=== PATIENT | male | born 1975 | race Two or more races ===

== ENCOUNTER 2025-02-10 12:38 | Emergency (ER) | payer SELFPAY ==
[2025-02-10 12:53] VITALS: BP 143/92; PULSE 66; RESP 18; TEMP 36.7; O2SAT 98
--- NOTE | 2025-02-10 13:07 | PD.EDADULT ---
ED General RME/HPI General Chief complaint: General Adult/Misc Complain Stated complaint: SWELLING TO LEFT SIDE OF FACE Time Seen by Provider: 02/10/25 12:58 Arrival date/time: 02/10/25 12:38 49-year-old presents to the Emergency Department today complains of 1 day history of left-sided facial swelling patient is concerned that his infection is tooth patient reports no difficulty swallowing or breathing Limitations: no limitations Related Data Previous Rx's ?Medication ?Instructions ?Recorded doxycycline monohydrate 100 mg 100 mg PO BID #14 caps 01/10/24 capsule ibuprofen 800 mg tablet 800 mg PO TID PRN pain #30 tabs 01/10/24 clindamycin HCl 150 mg capsule 450 mg (3 x 150 mg) PO TID 7 days 02/10/25 #63 caps ibuprofen 600 mg tablet 600 mg PO Q6H #30 tabs 02/10/25 Allergies Allergy/AdvReac Type Severity Reaction Status Date / Time No Known Allergies Allergy Verified 02/10/25 12:42 Review of Systems Review of Systems Systems Reviewed: All systems reviewed, normal except as documented Constitutional Constitutional: Reports system reviewed and no additional complaints, except as documented, Denies fever(s) and Denies headache(s) Eyes Eyes: Reports system reviewed and no additional complaints, except as documented and Denies blurry vision ENT Ears, Nose, Mouth, and Throat: Reports system reviewed and no additional complaints, except as documented, Denies headache(s), Denies nasal congestion, Denies nasal discharge and Reports other (Left-sided facial swelling) Cardiovascular Cardiovascular: Reports system reviewed and no additional complaints, except as documented, Denies chest pain and Denies dyspnea Respiratory Respiratory: Reports system reviewed and no additional complaints, except as documented, Denies chest congestion, Denies cough and Denies dyspnea Gastrointestinal Gastrointestinal: Denies system reviewed and no additional complaints, except as documented and Reports abdominal pain Integumentary/Breasts Skin/Breast: Reports system reviewed and no additional complaints, except as documented and Denies rash Neurologic Neurologic: Reports system reviewed and no additional complaints, except as documented, Reports as per HPI and Denies headache(s) Past Medical History Social History SMOKING STATUS: Never smoker ED Exam General Limitations: Present no limitations General appearance: Present alert and in no apparent distress Head Head exam: Present atraumatic Eye Eye exam: Present normal appearance, PERRL and EOMI ENT ENT exam: Present mucous membranes moist Expanded ENT Exam Teeth exam: Present fractured tooth #, dental tenderness # and gingival swelling Throat exam: Absent tonsillar erythema, tonsillomegaly or tonsillar exudate Neck Neck exam: Present normal inspection, full ROM and trachea midline Chest Chest inspection: Present normal inspection and symmetric chest wall rise Respiratory Respiratory exam: Present normal lung sounds bilaterally Cardiovascular Cardiovascular exam: Present regular rate, normal rhythm and normal heart sounds Abdominal Exam Abdominal exam: Present soft and normal bowel sounds Extremities Exam Extremities exam: Present normal inspection and full ROM Back Exam Back exam: Present normal inspection and full ROM Neurological Exam Neurological exam: Present alert, oriented X3 and CN II-XII intact Psychiatric Psychiatric exam: Present normal affect and normal mood Skin Skin exam: Present warm, dry, intact and normal color Course Quality Measures none Orders Category Date Time Status Dexamethasone Inj [Decadron Inj] Med 02/10/25 13:05 Discontinued 10 mg PO X1 ONE Ibuprofen Tab [Motrin Tab] Med 02/10/25 13:05 Discontinued 600 mg PO X1 ONE Lidocaine 1% 20 ml [Xylocaine 1% 20 ML] Med 02/10/25 13:05 Discontinued 2.1 ml INFL X1 ONE cefTRIAXone [Rocephin] Med 02/10/25 13:05 Discontinued 1,000 mg IM X1 ONE Vital Signs Vital signs: Vital Signs Temperature 98.1 F 02/10/25 12:53 Pulse Rate 66 02/10/25 12:53 Respiratory Rate 18 02/10/25 12:53 Blood Pressure 143/92 H 02/10/25 12:53 Pulse Oximetry (%) 98 02/10/25 12:53 Oxygen Delivery Method Room Air 02/10/25 12:53 O2 saturation 98% room air WNL Discharge Plan Plan Patient Disposition: HOME (Self Care) Discharge Disposition comment: Stable Prescriptions/Referrals Prescriptions/Med Rec: New clindamycin HCl 150 mg capsule 450 mg PO TID 7 Days Qty: 63 0RF ibuprofen 600 mg tablet 600 mg PO Q6H Qty: 30 0RF No Action doxycycline monohydrate 100 mg capsule 100 mg PO BID Qty: 14 0RF ibuprofen 800 mg tablet 800 mg PO TID PRN (Reason: pain) Qty: 30 0RF Problem List Clinical Impression: Abscess, dental Patient/Caregiver Discharge Instructions Education Materials: Dental Abscess Additional Instructions: Please follow up with your primary care doctor in the next 24-48hrs for any worsening symptoms return here immediately Print Language: Montenegrin Stand Alone Forms: [employer]da Award Info., Work/School Release, Patient Portal Info Letter PA/[employer]PERATOR Supervising Physician CHARLIE/STEVEN Supervising Physician: Dr. mendoza MDM Narrative MDM hospital course (for use when minimal MDM required): 49-year-old presents to the Emergency Department today complains of 1 day history of left-sided facial swelling patient is concerned that his infection is tooth patient reports no difficulty swallowing or breathing On exam patient has swelling left side of the face consistent with dental infection Patient given injection of Rocephin discharged on clindamycin Explained to the patient should symptoms persist or worsen instructed return for reevaluation Clinical Information Provided by: patient Medical Records reviewed None Meds/Rx considered, not ordered None Labs/Rad/Tests considered, not ordered None Chronic Illness/Social Conditions which may negatively complicate care or outcome(s)-explain: None or not applicable EKG EKG not done Labs Labs: none Imaging Imaging interpretation: none Medication Administration(s) Medication Administration History Discontinued Medications Ceftriaxone Sodium (Ceftriaxone Sod Inj 1,000 Mg Vial) 1,000 mg IM X1 ONE Stop: 02/10/25 13:06 Last Admin: 02/10/25 13:27 Dose: 1,000 mg Documented By: ISRA Dexamethasone Sodium Phosphate (Dexamethasone Sod Phos Inj 10 Mg/Ml Vial) 10 mg PO X1 ONE Stop: 02/10/25 13:06 Last Admin: 02/10/25 13:26 Dose: 10 mg Documented By: ISRA Ibuprofen (Ibuprofen Tab 600 Mg Tablet) 600 mg PO X1 ONE Stop: 02/10/25 13:06 Last Admin: 02/10/25 13:25 Dose: 600 mg Documented By: ISRA Lidocaine HCl (Lidocaine Hcl 1% 20 Ml Vial) 2.1 ml INFL X1 ONE Stop: 02/10/25 13:06 Last Admin: 02/10/25 13:27 Dose: 2.1 ml Documented By: ISRA Given Diagnosis Differential Diagnosis ED Complaint MDM: Dental abscess, gingival abscess
[2025-02-10] MEDS: IBUPROFEN TAB 600 MG TABLET PO (13:25)
[2025-02-10] MEDS: DEXAMETHASONE SOD PHOS INJ 10 MG/ML VIAL PO (13:26)
[2025-02-10] MEDS: cefTRIAXone SOD INJ 1,000 MG VIAL 1000 MG IM (13:27)
[2025-02-10] MEDS: LIDOCAINE HCL 1% 20 ML VIAL 2.1 ML INFL (13:27)
== END 2025-02-10 13:30 | disposition home or self-care (01) ==
LOC: SERX 13:36
PROVIDERS: Emergency Provider Family Medicine
DX: K04.7 Periapical abscess without sinus (principal)
CPT/HCPCS: 96372; 99283; J0696; J1100; J3490; A9270